=== PATIENT | female | born 1995 | race Caucasian/White ===

== ENCOUNTER 2019-04-21 11:17 | Inpatient (IN) | payer BC ==
[~2019-04-21] VITALS: Ht 160 cm; Wt 81.1 kg
[~2019-04-21 11:17] MED LIST: PNV11TAB PO
[2019-04-21 11:56] VITALS: Ht 160 cm; Wt 81.1 kg
[2019-04-21 11:58] VITALS: BP 144/77; PULSE 112; RESP 18
[2019-04-22] MEDS ORDERED: CALCIUM CARBONATE 500 MG CHEW TAB PO PRN ×2 (03:00→19:30)
[2019-04-22] MEDS ORDERED: LACTATED RINGER'S 1,000 ML IV PRN (11:23)
[2019-04-22] MEDS ORDERED: AMPICILLIN 2 GM/NS (PMX) 100 ML IV ONE (11:30)
[2019-04-22] MEDS ORDERED: OXYTOCIN 30 UNITS/LR 500 ML IV PRN (11:30)
[2019-04-22] MEDS ORDERED: LIDOCAINE 1% (MPF) 30 ML INJ INJ PRN (11:30)
[2019-04-22] MEDS ORDERED: IBUPROFEN 600 MG TAB PO PRN (11:30)
[2019-04-22] MEDS ORDERED: METHYLERGONOVINE 0.2 MG INJ IM PRN (11:30)
[2019-04-22] MEDS ORDERED: OXYTOCIN 30 UNITS/LR 500 ML IV SCH ×2 (11:30)
[2019-04-22] MEDS ORDERED: MINERAL OIL LIGHT 10 ML VIAL TOP ONE (11:30)
[2019-04-22] MEDS ORDERED: BUTORPHANOL 2 MG INJ IV PRN ×2 (11:30)
[2019-04-22] MEDS ORDERED: MISOPROSTOL 200 MCG TAB PR PRN (11:30)
[2019-04-22] MEDS ORDERED: CARBOPROST 250 MCG INJ IM PRN (11:30)
[2019-04-22] MEDS: LACTATED RINGER'S 1,000 ML IV SCH ×2 (12:42→19:34)
[2019-04-22] MEDS: MISOPROSTOL 50 MCG CAPSULE PO SCH ×3 (12:42→22:48)
[2019-04-22] MEDS: AMPICILLIN 1 GM/NS (PMX) 50 ML IV SCH ×2 (17:01→20:50)
[2019-04-23] MEDS: AMPICILLIN 1 GM/NS (PMX) 50 ML IV SCH ×6 (00:55→20:57)
[2019-04-23] MEDS: MISOPROSTOL 50 MCG CAPSULE PO PRN ×3 (04:11→14:01)
[2019-04-23] MEDS: LACTATED RINGER'S 1,000 ML IV SCH ×3 (04:13→23:02)
[2019-04-23] MEDS ORDERED: OXYTOCIN 30 UNITS/LR 500 ML IV SCH (17:00)
[2019-04-24] MEDS: AMPICILLIN 1 GM/NS (PMX) 50 ML IV SCH ×6 (01:32→22:07)
[2019-04-24] MEDS: LACTATED RINGER'S 1,000 ML IV SCH ×4 (05:51→23:31)
[2019-04-24] MEDS ORDERED: FENTAnyl 2MCG/ML-ROPIV 0.2% 100 ML ONE (06:23)
[2019-04-24] MEDS ORDERED: DIPHENHYDRAMINE 50 MG INJ IV PRN (06:30)
[2019-04-24] MEDS ORDERED: NALOXONE (0.4 MG/ML) INJ IV PRN (06:30)
[2019-04-24] MEDS ORDERED: ONDANSETRON 4 MG INJ IV PRN (06:30)
[2019-04-24] MEDS: FENTAnyl 2MCG/ML-ROPIV 0.2% 100 ML BAG EPI SCH ×2 (13:16→19:44)
[2019-04-25] MEDS ORDERED: OXYTOCIN 30 UNITS/LR 500 ML IV SCH (01:22)
[2019-04-25] MEDS: LACTATED RINGER'S 1,000 ML IV* SCH ×2 (01:22→09:22)
[2019-04-25] MEDS ORDERED: CARBOPROST 250 MCG INJ IM PRN (01:30)
[2019-04-25] MEDS ORDERED: OXYTOCIN 30 UNITS/LR 500 ML IV PRN (01:30)
[2019-04-25] MEDS ORDERED: BENZOCAINE 20% 56 ML SPRAY TOP PRN (01:30)
[2019-04-25] MEDS ORDERED: METHYLERGONOVINE 0.2 MG INJ IM PRN (01:30)
[2019-04-25] MEDS ORDERED: MISOPROSTOL 200 MCG TAB PR PRN (01:30)
[2019-04-25 04:05] VITALS: BP 140/81; PULSE 83; RESP 18
[2019-04-25] MEDS: LANOLIN HPA 1 PKT TOP PRN (05:22)
[2019-04-25] MEDS: IBUPROFEN 600 MG TAB PO SCH ×4 (05:34→23:50)
[2019-04-25 08:00] VITALS: BP 132/71; PULSE 100; RESP 18
[2019-04-25 16:00] VITALS: BP 144/72; PULSE 95; RESP 18
[2019-04-25 19:45] VITALS: BP 124/69; PULSE 91; RESP 19
[2019-04-26 03:45] VITALS: BP 121/62; PULSE 91; RESP 19
[2019-04-26] MEDS: IBUPROFEN 600 MG TAB PO SCH ×4 (05:44→23:55)
[2019-04-26 08:00] VITALS: BP 127/68; PULSE 94; RESP 18
[2019-04-26] MEDS ORDERED: MEASLES,MUMPS,RUBELLA VACCINE INJ SC* ONE (09:00)
[2019-04-26] MEDS: SENNA/DOCUSATE NA (8.6MG/50MG) TAB PO SCH ×2 (09:39→21:00)
[2019-04-26 16:03] VITALS: BP 140/82; PULSE 90; RESP 18
[2019-04-26 19:50] VITALS: BP 122/80; PULSE 69; RESP 19
[2019-04-26] MEDS: FERROUS SULFATE (EC) 325 MG TAB PO SCH (21:00)
[2019-04-27 03:50] VITALS: BP 135/77; PULSE 91; RESP 19
[2019-04-27] MEDS: IBUPROFEN 600 MG TAB PO SCH ×3 (05:43→17:56)
[2019-04-27 08:00] VITALS: BP 138/82; PULSE 88; RESP 18
[2019-04-27] MEDS ORDERED: DIPHTH/TET/ACEL PERTUSS (ADULT) 0.5 ML VIAL IM* ONE (09:00)
[2019-04-27] MEDS: HYDROCODONE/APAP (5/325) TAB PO PRN ×2 (09:37→16:19)
[2019-04-27] MEDS: SENNA/DOCUSATE NA (8.6MG/50MG) TAB PO SCH ×2 (09:37→22:08)
[2019-04-27] MEDS: FERROUS SULFATE (EC) 325 MG TAB PO SCH ×3 (09:37→22:08)
[2019-04-27] MEDS: LANOLIN HPA 1 PKT TOP PRN ×2 (09:39→17:57)
[2019-04-27 17:28] VITALS: BP 126/74; PULSE 84; RESP 18
[2019-04-27 20:00] VITALS: BP 129/79; PULSE 88; RESP 18
== END 2019-04-27 22:39 | disposition home or self-care (01) | DRG 807 ==
LOC: OBT 11:17 → L-D 11:19 → OBT 13:00 → L-D 13:00 → PP1 04-25 03:32
PROVIDERS: ADMIT Obstetrics & Gynecology; ATTEND Obstetrics & Gynecology
PROC: 10E0XZZ Delivery of Products of Conception, External Approach (ICD-10-PCS; principal; 2019-04-25)
PROC: 3E033VJ Introduction of Other Hormone into Peripheral Vein, Percutaneous Approach (ICD-10-PCS; 2019-04-25)
PROC: 0HQ9XZZ Repair Perineum Skin, External Approach (ICD-10-PCS; 2019-04-25)
DX: O36.8130 Decreased fetal movements, third trimester, not applicable or unspecified (principal); Z37.0 Single live birth; O13.3 Gestational [pregnancy-induced] hypertension without significant proteinuria, third trimester; Z3A.38 38 weeks gestation of pregnancy; O70.9 Perineal laceration during delivery, unspecified
CPT/HCPCS: 62322; 76815; 76818; 80053; 80307; 81001; 84560; 85025; 85384; 85610; 85730; 86592; 86850; 86900; 86901; 87340; 90715; G0463; J0290; J0595; J2590; J3010; J7120